=== PATIENT | female | born 1995 | race Caucasian/White ===

== ENCOUNTER 2020-04-23 23:54 | Emergency (ER) | payer OTHER ==
[2020-04-24] MEDS ORDERED: Sodium Chloride 0.9% 1000 ML 1,000 ML IV STA (00:41)
[2020-04-24 00:47] LABS: Absolute Neutrophil Ct (ANC) 3.46 (1.4-6.9); BASOPHIL % 0.7 % (0.0-0.4); Basophil (Absolute #) 0.04 (0-0.4); Eosinophil % 2.9 % (0.00-5.0); Eosinophil (Absolute #) 0.17 (0-0.5); Hematocrit 32.3 % (35-47); Hemoglobin 8.8 gm/dl (12.0-16.0); Lymphocyte (Absolute #) 1.82 (1.0-4.6); Lymphocytes % 30.8 % (24.0-44.0); Mean Cell Volume 70.1 fl (78-100); Mean Corpuscular Hemoglobin 19.1 pg (26-32); Mean Corpuscular Hgb Concent. 27.2 g/dl (32-36); Mean Platelet Volume 10.7 fl (7.5-11.0); Monocyte (Absolute #) 0.42 (0.0-1.3); Monocytes % 7.1 % (0.0-12.0); Neutrophil % 58.5 % (36.0-66.0); Platelet Count 334 K/mm3 (150-450); Red Blood Count 4.61 M/mm3 (4.1-5.4); Red Cell Distribution Width 19.8 % (11.5-14.0); White Blood Count 5.9 K/mm3 (4.0-10.5)
[2020-04-24] MEDS ORDERED: Sodium Chloride 0.9% 1000 ML 1,000 ML ONE (00:51)
[2020-04-24 00:52] LABS: ALBUMIN 4.8 g/dL (3.5-5.0); ALKALINE PHOSPHATASE 57 U/L (38-126); ANION GAP 13.2 MEQ/L (5-15); BLOOD UREA NITROGEN 11 mg/dL (7-17); CHLORIDE 101 mmol/L (98-107); Calcium 9.7 mg/dL (8.4-10.2); Carbon Dioxide 26 mmol/L (22-30); Creatinine 1 0.77 mg/dL (0.52-1.04); EST GLOMERULAR FILTRATION RATE > 60.0 ML/MIN; Glucose 100 mg/dL (74-106); Potassium 3.7 mmol/L (3.5-5.1); SGOT/AST 24 U/L (14-36); SGPT/ALT 12 U/L (0-35); SODIUM 136 mmol/L (137-145); Total Protein 7.6 g/dL (6.3-8.2)
[2020-04-24 00:53] LABS: Appearance SLIGHTLY CLOUDY (CLEAR); Bilirubin NEGATIVE (NEGATIVE); Blood SMALL Ery/ul (0-5); Epithelial Cells RARE /HPF (FEW); Glucose NEGATIVE (NEGATIVE); Ketones NEGATIVE (NEGATIVE); Leukocyte Esterase NEGATIVE (NEGATIVE); Mucus SLIGHT /HPF (NEGATIVE); Nitrite NEGATIVE (NEGATIVE); Protein,Urine Dip NEGATIVE (Negative); Specific Gravity 1.023 (1.005-1.025); Urobilinogen 2 mg/dL (0-1)
--- NOTE | 2020-04-24 00:57 | ERPHSYRPT ---
- History of Present Illness Time Seen by Provider: 04/23/20 23:58 Historian: patient Exam Limitations: no limitations Patient Subjective Stated Complaint: pt states "I have had bad stomach pain all day." Triage Nursing Assessment: pt ambulated into the er; pt is axo x4; c/o LLQ pain radiating to left flank; pt states frequent urination; pt states 7/10 pain to LLQ; tenderness with palpation to LLQ; pt denies vomiting or diarrhea; pt c/o nausea; abd is soft; hyperactive bowel sounds in all quads; clear lung sound in all lobes; clear heart tones; last BM 04/23/20; last oral in take 0015; vitals wnl Physician History: 24 years old female presented in the ER with chief complaint of left flank and left lower quadrant pain with radiation to the left groin since yesterday afternoon with gradually worsening moderate intensity sharp nature, aggravated with movements palpation and increased urination. Denies any dysuria, fever or chills. Has nausea but no vomiting. Patient also report having irregular cycles and history of endometriosis. She is currently having mild spotting. Timing/Duration: yesterday, gradual onset, worse Activities at Onset: rest Quality: sharpness Abdominal Pain Onset Location: LLQ, flank Pain Radiation: groin Severity of Pain-Max: moderate Severity of Pain-Current: moderate Modifying Factors: Worsens With: movement, palpation Associated Symptoms: nausea Previous symptoms: no prior history Allergies/Adverse Reactions: No Known Drug Allergies Allergy (Unverified 04/24/20 00:14) Home Medications: No Reportable Medications [No Reported Medications] 04/24/20 [History] Hx Tetanus, Diphtheria Vaccination/Date Given: Yes Hx Influenza Vaccination/Date Given: No Hx Pneumococcal Vaccination/Date Given: No Immunizations Up to Date: Yes Travel Risk - International Travel Have you traveled outside of the country in past 3 weeks: No - Coronavirus Screening Are you exhibiting any of the following symptoms?: No Close contact with a COVID-19 positive Pt in past 14-21 Days: No - Review of Systems Constitutional: No Symptoms Eyes: No Symptoms Ears, Nose, & Throat: No Symptoms Respiratory: No Symptoms Cardiac: No Symptoms Abdominal/Gastrointestinal: Abdominal Pain, Nausea Genitourinary Symptoms: Frequency Musculoskeletal: No Symptoms Skin: No Symptoms Neurological: No Symptoms Psychological: No Symptoms Endocrine: No Symptoms Hematologic/Lymphatic: No Symptoms Immunological/Allergic: No Symptoms - Past Medical History Pertinent Past Medical History: Yes GI Medical History: Irritable Bowel Female Reproductive Disorders: Endometriosis - Past Surgical History Past Surgical History: Yes Gastrointestinal: Cholecystectomy Musculoskeletal: Orthopedic Surgery Female Surgical History: Section, Tubal Ligation Other Surgical History: rt knee, skin graph to neck, cervical ablation x2 - Social History Smoking Status: Current every day smoker Exposure to second hand smoke: Yes Drug Use: none Patient Lives Alone: No - Female History Hx Last Menstrual Period: 04/23/20 Hx Now: (unkn) - Nursing Vital Signs Nursing Vital Signs: Initial Vital Signs Temperature 98.2 F 04/24/20 00:15 Pulse Rate 76 04/24/20 00:15 Blood Pressure 135/77 04/24/20 00:15 O2 Sat by Pulse Oximetry 99 04/24/20 00:15 Pain Scale Pain Intensity 7 - Physical Exam General Appearance: no apparent distress Eye Exam: eyes nml inspection Ears, Nose, Throat Exam: normal ENT inspection, pharynx normal Neck Exam: normal inspection, supple, full range of motion Respiratory Exam: normal breath sounds, lungs clear Cardiovascular Exam: regular rate/rhythm, normal heart sounds Gastrointestinal/Abdomen Exam: soft, normal bowel sounds, tenderness (Left flank/left lower quadrant) Back Exam: normal inspection, normal range of motion, CVA tenderness (Left) Extremity Exam: normal inspection, normal range of motion Neurologic Exam: alert, oriented x 3, cooperative Skin Exam: normal color SpO2 Interpretation: normal SpO2: 99 O2 Delivery: Room Air Ordered Tests: Active Orders 24 hr Category Date Time Status IV Insertion STAT Care 04/24/20 00:41 Active ABDOMEN AND PELVIS W CONTRAST [CT] Stat Exams 04/24/20 00:41 Taken CBC W DIFF Stat Lab 04/24/20 00:30 Completed CMP Stat Lab 04/24/20 00:30 Completed HCG,QUALITATIVE URINE Stat Lab 04/24/20 00:30 Completed UA W/RFX UR CULTURE Stat Lab 04/24/20 00:30 Completed Medication Summary Discontinued Medications Generic Name Dose Route Start Last Admin Trade Name Freq PRN Reason Stop Dose Admin Sodium Chloride 1,000 mls @ 999 mls/hr 04/24/20 00:41 04/24/20 00:52 Sodium Chloride 0.9% 1000 Ml IV 04/24/20 01:41 999 mls/hr .Q1H1M STA Administration Sodium Chloride Confirm 04/24/20 00:51 Sodium Chloride 0.9% 1000 Ml Administered 04/24/20 00:52 Dose 1,000 mls @ ud .ROUTE .STK-MED ONE Ketorolac Tromethamine 30 mg 04/24/20 02:03 04/24/20 02:14 Toradol 30 Mg Injection IV 04/24/20 02:04 30 mg STAT ONE Administration Ketorolac Tromethamine Confirm 04/24/20 02:14 Toradol 30 Mg Injection Administered 04/24/20 02:15 Dose 30 mg .ROUTE .STK-MED ONE Lab/Rad Data: Laboratory Result Diagrams 04/24/20 00:30 04/24/20 00:30 Laboratory Results 04/24/20 04/24/20 04/24/20 Range/Units 00:30 00:30 00:30 WBC 5.9 (4.0-10.5) K/mm3 RBC 4.61 (4.1-5.4) M/mm3 Hgb 8.8 L (12.0-16.0) gm/dl Hct 32.3 L (35-47) % MCV 70.1 L (78-100) fl MCH 19.1 L (26-32) pg MCHC 27.2 L (32-36) g/dl RDW 19.8 H (11.5-14.0) % Plt Count 334 (150-450) K/mm3 MPV 10.7 (7.5-11.0) fl Gran % 58.5 (36.0-66.0) % Eos # (Auto) 0.17 (0-0.5) Absolute Lymphs (auto) 1.82 (1.0-4.6) Absolute Monos (auto) 0.42 (0.0-1.3) Lymphocytes % 30.8 (24.0-44.0) % Monocytes % 7.1 (0.0-12.0) % Eosinophils % 2.9 (0.00-5.0) % Basophils % 0.7 (0.0-0.4) % Absolute Granulocytes 3.46 (1.4-6.9) Basophils # 0.04 (0-0.4) Sodium 136 L (137-145) mmol/L Potassium 3.7 (3.5-5.1) mmol/L Chloride 101 (98-107) mmol/L Carbon Dioxide 26 (22-30) mmol/L Anion Gap 13.2 (5-15) MEQ/L BUN 11 (7-17) mg/dL Creatinine 0.77 (0.52-1.04) mg/dL Estimated GFR > 60.0 ML/MIN Glucose 100 (74-106) mg/dL Calcium 9.7 (8.4-10.2) mg/dL Total Bilirubin 0.80 (0.2-1.3) mg/dL AST 24 (14-36) U/L ALT 12 (0-35) U/L Alkaline Phosphatase 57 (38-126) U/L Serum Total Protein 7.6 (6.3-8.2) g/dL Albumin 4.8 (3.5-5.0) g/dL Urine Color (YELLOW) Urine Appearance (CLEAR) Urine pH (5-6) Ur Specific Bryson (1.005-1.025) Urine Protein (Negative) Urine Ketones (NEGATIVE) Urine Blood (0-5) Landon/ul Urine Nitrite (NEGATIVE) Urine Bilirubin (NEGATIVE) Urine Urobilinogen (0-1) mg/dL Ur Leukocyte Esterase (NEGATIVE) Urine WBC (Auto) (0-5) /HPF Urine RBC (Auto) (0-2) /HPF U Epithel Cells (Auto) (FEW) /HPF Urine Bacteria (Auto) (NEGATIVE) /HPF Urine Mucus (Auto) (NEGATIVE) /HPF Urine Culture Reflexed (NO) Urine Glucose (NEGATIVE) mg/dL Urine HCG, Qual NEGATIVE (Negative) Slides for Path Review YES 04/24/20 Range/Units 00:30 WBC (4.0-10.5) K/mm3 RBC (4.1-5.4) M/mm3 Hgb (12.0-16.0) gm/dl Hct (35-47) % MCV (78-100) fl MCH (26-32) pg MCHC (32-36) g/dl RDW (11.5-14.0) % Plt Count (150-450) K/mm3 MPV (7.5-11.0) fl Gran % (36.0-66.0) % Eos # (Auto) (0-0.5) Absolute Lymphs (auto) (1.0-4.6) Absolute Monos (auto) (0.0-1.3) Lymphocytes % (24.0-44.0) % Monocytes % (0.0-12.0) % Eosinophils % (0.00-5.0) % Basophils % (0.0-0.4) % Absolute Granulocytes (1.4-6.9) Basophils # (0-0.4) Sodium (137-145) mmol/L Potassium (3.5-5.1) mmol/L Chloride (98-107) mmol/L Carbon Dioxide (22-30) mmol/L Anion Gap (5-15) MEQ/L BUN (7-17) mg/dL Creatinine (0.52-1.04) mg/dL Estimated GFR ML/MIN Glucose (74-106) mg/dL Calcium (8.4-10.2) mg/dL Total Bilirubin (0.2-1.3) mg/dL AST (14-36) U/L ALT (0-35) U/L Alkaline Phosphatase (38-126) U/L Serum Total Protein (6.3-8.2) g/dL Albumin (3.5-5.0) g/dL Urine Color YELLOW (YELLOW) Urine Appearance SLIGHTLY CLOUDY (CLEAR) Urine pH 6.0 (5-6) Ur Specific Bryson 1.023 (1.005-1.025) Urine Protein NEGATIVE (Negative) Urine Ketones NEGATIVE (NEGATIVE) Urine Blood SMALL (0-5) Landon/ul Urine Nitrite NEGATIVE (NEGATIVE) Urine Bilirubin NEGATIVE (NEGATIVE) Urine Urobilinogen 2 (0-1) mg/dL Ur Leukocyte Esterase NEGATIVE (NEGATIVE) Urine WBC (Auto) NONE (0-5) /HPF Urine RBC (Auto) NONE (0-2) /HPF U Epithel Cells (Auto) RARE (FEW) /HPF Urine Bacteria (Auto) NONE (NEGATIVE) /HPF Urine Mucus (Auto) SLIGHT (NEGATIVE) /HPF Urine Culture Reflexed NO (NO) Urine Glucose NEGATIVE (NEGATIVE) mg/dL Urine HCG, Qual (Negative) Slides for Path Review - Progress Progress: improved, pain not gone completely, re-examined Progress Note: 04/24/20 02:39 feeling better , no peritoneal signs on re evaluation , Counseled pt/family regarding: lab results, diagnosis, need for follow-up, rad results - Departure Departure Disposition: Home Clinical Impression: Left sided abdominal pain, Enteritis Condition: Stable Critical Care Time: No Referrals: ELIANA CASE [Primary Care Provider] - (1-2 days for re evaluation) Instructions: Acute Abdomen (Belly Pain), Adult (DC) Additional Instructions: Drink plenty of fluids. Take Tylenol as needed. Follow-up with primary care physician for reevaluation. Return to ER for worsening pain or if develop fever chills etc.
[2020-04-24] MEDS ORDERED: TORAdol 30 mg Injection IV ONE (02:03)
[2020-04-24] MEDS ORDERED: TORAdol 30 mg Injection ONE (02:14)
[2020-04-24 02:32] LABS: Slide Review 1 YES
[2020-04-24 02:52] VITALS: BP 87/51; PULSE 64; O2SAT 100
--- NOTE | 2020-04-24 09:24 | XRAY ---
Indication: Left pelvic pain. Dizziness and nausea. Multiple contiguous axial images obtained through the abdomen and pelvis using 80 cc Isovue 370 contrast. Comparison: None Lung bases are clear. Heart is not enlarged. Noncontrasted stomach and bowel loops appear nonobstructed. Appendix not seen. Mild fecal debris in the ascending colon. Previous cholecystectomy. No free fluid/air. Remaining liver, pancreas, spleen, adrenal glands, kidneys, ureters, bladder, uterus, and aorta appear unremarkable. No pathologic retroperitoneal lymphadenopathy. Osseous structures intact. No ventral or inguinal hernias. Impression: CT abdomen/pelvis with contrast exam is negative. Comment: Preliminary interpretation was made by C. No critical discrepancy.
== END 2020-04-24 02:52 | disposition home or self-care (01) ==
LOC: ED 23:54
DX: R10.32 Left lower quadrant pain (principal); R11.0 Nausea; R10.9 Unspecified abdominal pain
CPT/HCPCS: 36000; 36415; 74177; 80053; 81001; 84703; 85025; 96360; 96374; 99284; J1885

== ENCOUNTER 2023-02-09 17:40 | Emergency (ER) | payer OTHER ==
--- NOTE | 2023-02-09 17:55 | ERPHSYRPT ---
- History of Present Illness Source: patient, family Exam Limitations: clinical condition Timing/Duration: day(s) (3) Severity: mild (To moderate) Character of Deficits: none Deficits: no difficulties Baseline/Normal Cognition: alert oriented x 3 Current Cognition: alert oriented x 3 Baseline Gait: walks w/o assistance Associated Symptoms: fatigue, weakness, slurred speech Hx Tetanus, Diphtheria Vaccination/Date Given: Yes Hx Influenza Vaccination/Date Given: No Hx Pneumococcal Vaccination/Date Given: No <CEE WOLFE - Last Filed: 02/09/23 18:58> <MYNOR ANGEL - Last Filed: 02/09/23 21:30> - History of Present Illness Time Seen by Provider: 02/09/23 17:55 Physician History: This is a 27-year-old white female patient who 3 days ago began having multiple complaints including brain fog, body aches, fatigue, dizziness, shakiness itching head to toe with evidence of hives and migraine headache. She has not had any nausea vomiting or diarrhea symptoms. She does not have chest pain. She felt as though she had been drinking alcohol all night long whenever she woke up in the morning. However she has not drinking alcohol. She has comp lained about feeling so tired that she slept in past the time when she was post to go into work. She states that she does not do this type of thing. Patient also stated that she had a brief episode of slurred speech on Monday prior to this evaluation but it completely resolved. She has not suffered any head trauma. She is not taking any new medications. Patient has a history of endometriosis and irritable bowel syndrome. (CEE WOLFE) Allergies/Adverse Reactions: doxycycline Adverse Reaction (Verified 02/09/23 17:54) Hives Home Medications: Iron 65 mg PO BID 02/09/23 [History] Travel Risk - International Travel Have you traveled outside of the country in past 3 weeks: No - Coronavirus Screening Are you exhibiting any of the following symptoms?: Yes Symptoms: Headaches/Body Aches/Fatigue Close contact with a COVID-19 positive Pt in past 14-21 Days: No <CEE WOLFE - Last Filed: 02/09/23 18:58> - Review of Systems Constitutional: Fatigue, Weakness Eyes: No Symptoms Ears, Nose, & Throat: No Symptoms Respiratory: No Symptoms Cardiac: No Symptoms Abdominal/Gastrointestinal: No Symptoms Genitourinary Symptoms: No Symptoms Musculoskeletal: No Symptoms Skin: Pruritis Neurological: No Symptoms Psychological: No Symptoms Endocrine: No Symptoms Hematologic/Lymphatic: No Symptoms Immunological/Allergic: No Symptoms All Other Systems: Reviewed and Negative <CEE WOLFE - Last Filed: 02/09/23 18:58> - Past Medical History Pertinent Past Medical History: Yes GI Medical History: Irritable Bowel Female Reproductive Disorders: Endometriosis - Past Surgical History Past Surgical History: Yes Gastrointestinal: Cholecystectomy Musculoskeletal: Orthopedic Surgery Female Surgical History: Section, Tubal Ligation Other Surgical History: rt knee, skin graph to neck, cervical ablation x2 - Social History Smoking Status: Current every day smoker Exposure to second hand smoke: Yes Drug Use: none Patient Lives Alone: No <CEE WOLFE - Last Filed: 02/09/23 18:58> - Daniele Coma Scale Best Eye Response ([place]): (4) open spontaneously Best Verbal Response (Daniele): (5) oriented Best Motor Response ([place]): (6) obeys commands Daniele Total: 15 - Physical Exam General Appearance: no apparent distress, alert, anxiety Eye Exam: bilateral eye: normal inspection, PERRL, EOMI Ears, Nose, Throat Exam: normal ENT inspection, moist mucous membranes Neck Exam: normal inspection, non-tender, supple, full range of motion Respiratory: normal breath sounds, lungs clear, airway intact, No chest tenderness, No respiratory distress Cardiovascular: regular rate/rhythm, normal heart sounds, normal peripheral pulses Gastrointestinal: soft, normal bowel sounds, No tenderness Pelvic Exam: not done Rectal Exam: not done Back Exam: normal inspection, normal range of motion, No CVA tenderness, No vertebral tenderness Extremity Exam: normal inspection, normal range of motion, pelvis stable Mental Status: alert, oriented x 3, cooperative animal surgeon Exam: normal hearing, normal speech, PERRL, tongue midline Coordination/Gait: normal gait, normal cerebellar function Motor/Sensory: no motor deficit, no sensory deficit, no pronator drift Skin Exam: normal color, warm, dry SpO2 Interpretation: normal O2 Delivery: Room Air <CEE WOLFE - Last Filed: 02/09/23 18:58> - Nursing Vital Signs Nursing Vital Signs: Initial Vital Signs Temperature 98.8 F 02/09/23 17:51 Pulse Rate 97 H 02/09/23 17:51 Respiratory Rate 16 02/09/23 17:51 Blood Pressure 138/67 02/09/23 17:51 O2 Sat by Pulse Oximetry 99 02/09/23 17:51 Pain Scale Pain Intensity 0 - Course Nursing assessment & vital signs reviewed: Yes <CEE WOLFE - Last Filed: 02/09/23 18:58> - CT Exams Head CT Interpretation: Tele-radiologist Report (Normal CT head) <MYNOR ANGEL - Last Filed: 02/09/23 21:30> Ordered Tests: Active Orders 24 hr Category Date Time Status EKG-ER Only STAT Care 02/09/23 18:44 Active IV Insertion STAT Care 02/09/23 18:44 Active HEAD WITHOUT CONTRAST [CT] Stat Exams 02/09/23 19:55 Taken AMYLASE Stat Lab 02/09/23 19:10 Completed BLOOD CULTURE Stat Lab 02/09/23 19:20 Received CBC W DIFF Stat Lab 02/09/23 19:10 Completed CMP Stat Lab 02/09/23 19:10 Completed ETHYL ALCOHOL Stat Lab 02/09/23 19:10 Completed HCG QUALITATIVE, SERUM Stat Lab 02/09/23 19:10 Completed LIPASE Stat Lab 02/09/23 19:10 Completed Lactic Acid Stat Lab 02/09/23 19:18 Completed MAGNESIUM Stat Lab 02/09/23 19:10 Completed MONO SCREEN Stat Lab 02/09/23 19:10 Completed TSH [TSH, 3RD Generation] Stat Lab 02/09/23 18:30 Received UA W/RFX UR CULTURE Stat Lab 02/09/23 19:03 Completed Urine Triage Profile Stat Lab 02/09/23 19:03 Completed Medication Summary Discontinued Medications Generic Name Dose Route Start Last Admin Trade Name Freq PRN Reason Stop Dose Admin Sodium Chloride 1,000 mls @ 999 mls/hr 02/09/23 18:44 02/09/23 19:20 Sodium Chloride 0.9% 1000 Ml IV 02/09/23 19:44 999 mls/hr .Q1H1M STA Administration Sodium Chloride Confirm 02/09/23 19:18 Sodium Chloride 0.9% 1000 Ml Administered 02/09/23 19:19 Dose 1,000 mls @ ud .ROUTE .[facility] Lab/Rad Data: Laboratory Result Diagrams 02/09/23 19:10 02/09/23 19:10 Laboratory Results 02/09/23 02/09/23 02/09/23 Range/Units 19:18 19:15 19:10 WBC (4.0-10.5) x10^3/uL RBC (4.1-5.4) x10^6/uL Hgb (12.0-16.0) g/dL Hct (35-47) % MCV (78-100) fL MCH (26-32) pg MCHC (32-36) g/dL RDW (11.5-14.0) % Plt Count (150-450) x10^3/uL MPV (7.5-11.0) fL Gran % (36.0-66.0) % Immature Gran % (Auto) (0.00-0.4) % Nucleat RBC Rel Count (0.00-0.1) % Eos # (Auto) (0-0.5) x10^3/uL Immature Gran # (Auto) (0.00-0.03) x10^3u/L Absolute Lymphs (auto) (1.0-4.6) x10^3/uL Absolute Monos (auto) (0.0-1.3) x10^3/uL Absolute Nucleated RBC (0.00-0.01) x10^3u/L Lymphocytes % (24.0-44.0) % Monocytes % (0.0-12.0) % Eosinophils % (0.00-5.0) % Basophils % (0.0-0.4) % Absolute Granulocytes (1.4-6.9) x10^3/uL Basophils # (0-0.4) x10^3/uL Sodium (137-145) mmol/L Potassium (3.5-5.1) mmol/L Chloride (98-107) mmol/L Carbon Dioxide (22-30) mmol/L Anion Gap (5-15) MEQ/L BUN (7-17) mg/dL Creatinine (0.52-1.04) mg/dL Estimated GFR ML/MIN Glucose (74-106) mg/dL Lactic Acid 0.6 (0.4-2.0) Calcium (8.4-10.2) mg/dL Magnesium (1.6-2.3) mg/dL Total Bilirubin (0.2-1.3) mg/dL AST (14-36) U/L ALT (0-35) U/L Alkaline Phosphatase (38-126) U/L Serum Total Protein (6.3-8.2) g/dL Albumin (3.5-5.0) g/dL Amylase (30-110) U/L Lipase (23-300) U/L Serum HCG, Qual NEGATIVE (NEGATIVE) Urine Color (Yellow) Urine Appearance (Clear) Urine pH (4.6-8.0) Ur Specific [place] (1.005-1.030) Urine Protein (Negative) Urine Glucose (UA) (Negative) mg/dL Urine Ketones (Negative) Urine Blood (Negative) Urine Nitrite (Negative) Urine Bilirubin (Negative) Urine Urobilinogen (0.2) mg/dL Ur Leukocyte Esterase (Negative) U Hyaline Cast (Auto) (0-2) /LPF Urine Microscopic RBC (0-5) /HPF Urine Microscopic WBC (0-5) /HPF Ur Epithelial Cells (None Seen) /HPF Urine Bacteria (None Seen) /HPF Urine Culture Reflexed (NO) Urine Opiates Level (NEGATIVE) Ur Methadone (NEGATIVE) Urine Barbiturates (NEGATIVE) Ur Phencyclidine (PCP) (NEGATIVE) Urine Amphetamine (NEGATIVE) U Benzodiazepine Level (NEGATIVE) Urine Cocaine (NEGATIVE) Urine Marijuana (THC) (NEGATIVE) Ethyl Alcohol (0-10) mg/dL Monoscreen NEGATIVE (NEGATIVE) Influenza Type A Ag NEGATIVE (NEGATIVE) Influenza Type B Ag NEGATIVE (NEGATIVE) RSV (PCR) NEGATIVE (NEGATIVE) SARS-CoV-2 (PCR) NEGATIVE (NEGATIVE) 02/09/23 02/09/23 02/09/23 Range/Units 19:10 19:10 19:03 WBC 7.4 (4.0-10.5) x10^3/uL RBC 4.67 (4.1-5.4) x10^6/uL Hgb 13.9 (12.0-16.0) g/dL Hct 43.3 (35-47) % MCV 92.7 (78-100) fL MCH 29.8 (26-32) pg MCHC 32.1 (32-36) g/dL RDW 12.5 (11.5-14.0) % Plt Count 209 (150-450) x10^3/uL MPV 10.9 (7.5-11.0) fL Gran % 67.1 H (36.0-66.0) % Immature Gran % (Auto) 0.4 (0.00-0.4) % Nucleat RBC Rel Count 0.0 (0.00-0.1) % Eos # (Auto) 0.12 (0-0.5) x10^3/uL Immature Gran # (Auto) 0.03 (0.00-0.03) x10^3u/L Absolute Lymphs (auto) 1.88 (1.0-4.6) x10^3/uL Absolute Monos (auto) 0.37 (0.0-1.3) x10^3/uL Absolute Nucleated RBC 0.00 (0.00-0.01) x10^3u/L Lymphocytes % 25.5 (24.0-44.0) % Monocytes % 5.0 (0.0-12.0) % Eosinophils % 1.6 (0.00-5.0) % Basophils % 0.4 (0.0-0.4) % Absolute Granulocytes 4.93 (1.4-6.9) x10^3/uL Basophils # 0.03 (0-0.4) x10^3/uL Sodium 138 (137-145) mmol/L Potassium 3.6 (3.5-5.1) mmol/L Chloride 102 (98-107) mmol/L Carbon Dioxide 26 (22-30) mmol/L Anion Gap 13.6 (5-15) MEQ/L BUN 6 L (7-17) mg/dL Creatinine 0.74 (0.52-1.04) mg/dL Estimated GFR 113.7 ML/MIN Glucose 88 (74-106) mg/dL Lactic Acid (0.4-2.0) Calcium 9.4 (8.4-10.2) mg/dL Magnesium 2.0 (1.6-2.3) mg/dL Total Bilirubin 1.20 (0.2-1.3) mg/dL AST 23 (14-36) U/L ALT 18 (0-35) U/L Alkaline Phosphatase 57 (38-126) U/L Serum Total Protein 7.3 (6.3-8.2) g/dL Albumin 4.4 (3.5-5.0) g/dL Amylase 82 (30-110) U/L Lipase 145 (23-300) U/L Serum HCG, Qual (NEGATIVE) Urine Color (Yellow) Urine Appearance (Clear) Urine pH (4.6-8.0) Ur Specific [place] (1.005-1.030) Urine Protein (Negative) Urine Glucose (UA) (Negative) mg/dL Urine Ketones (Negative) Urine Blood (Negative) Urine Nitrite (Negative) Urine Bilirubin (Negative) Urine Urobilinogen (0.2) mg/dL Ur Leukocyte Esterase (Negative) U Hyaline Cast (Auto) (0-2) /LPF Urine Microscopic RBC (0-5) /HPF Urine Microscopic WBC (0-5) /HPF Ur Epithelial Cells (None Seen) /HPF Urine Bacteria (None Seen) /HPF Urine Culture Reflexed (NO) Urine Opiates Level NEGATIVE (NEGATIVE) Ur Methadone NEGATIVE (NEGATIVE) Urine Barbiturates NEGATIVE (NEGATIVE) Ur Phencyclidine (PCP) NEGATIVE (NEGATIVE) Urine Amphetamine NEGATIVE (NEGATIVE) U Benzodiazepine Level NEGATIVE (NEGATIVE) Urine Cocaine NEGATIVE (NEGATIVE) Urine Marijuana (THC) NEGATIVE (NEGATIVE) Ethyl Alcohol < 10 (0-10) mg/dL Monoscreen (NEGATIVE) Influenza Type A Ag (NEGATIVE) Influenza Type B Ag (NEGATIVE) RSV (PCR) (NEGATIVE) SARS-CoV-2 (PCR) (NEGATIVE) 02/09/23 Range/Units 19:03 WBC (4.0-10.5) x10^3/uL RBC (4.1-5.4) x10^6/uL Hgb (12.0-16.0) g/dL Hct (35-47) % MCV (78-100) fL MCH (26-32) pg MCHC (32-36) g/dL RDW (11.5-14.0) % Plt Count (150-450) x10^3/uL MPV (7.5-11.0) fL Gran % (36.0-66.0) % Immature Gran % (Auto) (0.00-0.4) % Nucleat RBC Rel Count (0.00-0.1) % Eos # (Auto) (0-0.5) x10^3/uL Immature Gran # (Auto) (0.00-0.03) x10^3u/L Absolute Lymphs (auto) (1.0-4.6) x10^3/uL Absolute Monos (auto) (0.0-1.3) x10^3/uL Absolute Nucleated RBC (0.00-0.01) x10^3u/L Lymphocytes % (24.0-44.0) % Monocytes % (0.0-12.0) % Eosinophils % (0.00-5.0) % Basophils % (0.0-0.4) % Absolute Granulocytes (1.4-6.9) x10^3/uL Basophils # (0-0.4) x10^3/uL Sodium (137-145) mmol/L Potassium (3.5-5.1) mmol/L Chloride (98-107) mmol/L Carbon Dioxide (22-30) mmol/L Anion Gap (5-15) MEQ/L BUN (7-17) mg/dL Creatinine (0.52-1.04) mg/dL Estimated GFR ML/MIN Glucose (74-106) mg/dL Lactic Acid (0.4-2.0) Calcium (8.4-10.2) mg/dL Magnesium (1.6-2.3) mg/dL Total Bilirubin (0.2-1.3) mg/dL AST (14-36) U/L ALT (0-35) U/L Alkaline Phosphatase (38-126) U/L Serum Total Protein (6.3-8.2) g/dL Albumin (3.5-5.0) g/dL Amylase (30-110) U/L Lipase (23-300) U/L Serum HCG, Qual (NEGATIVE) Urine Color Yellow (Yellow) Urine Appearance Clear (Clear) Urine pH 6.5 (4.6-8.0) Ur Specific [place] 1.010 (1.005-1.030) Urine Protein Negative (Negative) Urine Glucose (UA) Negative (Negative) mg/dL Urine Ketones Negative (Negative) Urine Blood Negative (Negative) Urine Nitrite Negative (Negative) Urine Bilirubin Negative (Negative) Urine Urobilinogen 0.2 (0.2) mg/dL Ur Leukocyte Esterase Negative (Negative) U Hyaline Cast (Auto) NONE SEEN (0-2) /LPF Urine Microscopic RBC 0-2 (0-5) /HPF Urine Microscopic WBC 0-2 (0-5) /HPF Ur Epithelial Cells Rare (None Seen) /HPF Urine Bacteria None Seen (None Seen) /HPF Urine Culture Reflexed NO (NO) Urine Opiates Level (NEGATIVE) Ur Methadone (NEGATIVE) Urine Barbiturates (NEGATIVE) Ur Phencyclidine (PCP) (NEGATIVE) Urine Amphetamine (NEGATIVE) U Benzodiazepine Level (NEGATIVE) Urine Cocaine (NEGATIVE) Urine Marijuana (THC) (NEGATIVE) Ethyl Alcohol (0-10) mg/dL Monoscreen (NEGATIVE) Influenza Type A Ag (NEGATIVE) Influenza Type B Ag (NEGATIVE) RSV (PCR) (NEGATIVE) SARS-CoV-2 (PCR) (NEGATIVE) <CEE WOLFE - Last Filed: 02/09/23 18:58> - Progress Progress: improved Counseled pt/family regarding: lab results, diagnosis, need for follow-up, rad results <MYNOR ANGEL - Last Filed: 02/09/23 21:30> - Progress Progress Note: 02/09/23 19:04 This patient's medical issue is of moderate complexity. Level complex in the workup performed is based on review of the patient's past medical history, review of the patient's medication list, review the patient's drug allergy list, history present illness and physical findings on examination. The workup in this patient includes placement of intravenous line, CT scan of the head, normal saline solution infusion, CBC, CMP, alcohol level, urinalysis, urine drug screen, test, viral swabs and monotest. I am transferring care of this patient to Dr. Angel at shift change. He will follow-up with the workup results and make final disposition. (CEE WOLFE) 27-year-old female presents to our ED with multiple complaints. Patient evaluated by previous physician. Workup was extensive however no significant findings were observed. CT head was nonremarkable. CBC CMP were within normal limits. COVID testing negative. Alcohol negative. Lipase negative. Lactic acid negative. Magnesium within normal limits. UA within normal limits. Monospot negative. Urine triage negative. Patient reassessed. She feels better. Patient ambulated throughout our ED. No complaints. Patient was concerned that her blood pressure was too low. However we checked her blood pressure manually and blood pressure was normal. We added a TSH prior to discharge. Results pending. Patient that she is ready for discharge. She will follow-up with her primary care doctor within 48 hours for evaluation. She voices no other complaints or concerns at this time. Portions of this note were created with voice recognition technology. There may be grammatical, spelling, punctuation or sound alike errors 02/09/23 21:28 (MYNOR ANGEL) - Departure Departure Disposition: Home Critical Care Time: No <CEE WOLFE - Last Filed: 02/09/23 18:58> <MYNOR ANGEL - Last Filed: 02/09/23 21:30> - Departure Clinical Impression: Dizziness Condition: Stable Referrals: ELIANA CASE [Primary Care Provider] - Follow up/PCP as directed Additional Instructions: Discharge/Care Plan NOHEMI RUEDA was seen on 02/09/23 in the Emergency Room. The patient was counseled regarding Diagnosis,Lab results, Imaging studies, need for follow up and when to return to the Emergency Room. Prescriptions given: Discharge Note I have spoken with the patient and/or caregivers. I have explained the patient's condition, diagnosis and treatment plan based on the information available to me at this time. I have answered the patient's and/or caregiver's questions and addressed any concerns. The patient and/or caregivers have as good understanding of the patient's diagnosis, condition and treatment plan as can be expected at this point. The vital signs have been stable. The patient's condition is stable and appropriate for discharge from the emergency department. The patient will pursue further outpatient evaluation with the primary care physician or other designated or consulting physician as outlined in the discharge instructions. The patient and/or caregivers are agreeable to this plan of care and follow-up instructions have been explained in detail. The patient and/or caregivers have received these instruction. The patient/and or caregivers are aware that any significant change in condition or worsening of symptoms should prompt an immediate return to this or the closest emergency department or call 911.
[2023-02-09 18:05] VITALS: TEMP 98.8
[2023-02-09] MEDS ORDERED: Sodium Chloride 0.9% 1000 ML 1,000 ML IV STA (18:44)
[2023-02-09] MEDS ORDERED: Sodium Chloride 0.9% 1000 ML 1,000 ML ONE (19:18)
[2023-02-09 19:31] LABS: Absolute Neutrophil Ct (ANC) 4.93 x10^3/uL (1.4-6.9); BASOPHIL % 0.4 % (0.0-0.4); Basophil (Absolute #) 0.03 x10^3/uL (0-0.4); Eosinophil % 1.6 % (0.00-5.0); Eosinophil (Absolute #) 0.12 x10^3/uL (0-0.5); Hematocrit 43.3 % (35-47); Hemoglobin 13.9 g/dL (12.0-16.0); IMMATURE GRAN # 0.03 x10^3u/L (0.00-0.03); IMMATURE GRAN % 0.4 % (0.00-0.4); Lymphocyte (Absolute #) 1.88 x10^3/uL (1.0-4.6); Lymphocytes % 25.5 % (24.0-44.0); Mean Cell Volume 92.7 fL (78-100); Mean Corpuscular Hemoglobin 29.8 pg (26-32); Mean Corpuscular Hgb Concent. 32.1 g/dL (32-36); Mean Platelet Volume 10.9 fL (7.5-11.0); Monocyte (Absolute #) 0.37 x10^3/uL (0.0-1.3); Neutrophil % 67.1 % (36.0-66.0); Platelet Count 209 x10^3/uL (150-450); Red Blood Count 4.67 x10^6/uL (4.1-5.4); Red Cell Distribution Width 12.5 % (11.5-14.0); White Blood Count 7.4 x10^3/uL (4.0-10.5)
[2023-02-09 19:38] LABS: Appearance Clear (Clear); Bacteria None Seen /HPF (None Seen); Bilirubin Negative (Negative); Blood Negative (Negative); Epithelial Cells Rare /HPF (None Seen); Glucose, Urine Negative (Negative); Hyaline Casts NONE SEEN /LPF (0-2); Ketones Negative (Negative); Leukocyte Esterase Negative (Negative); Nitrite Negative (Negative); Ph 6.5 (4.6-8.0); Protein,Urine Dip Negative (Negative); RBC 0-2 /HPF (0-5); Urobilinogen 0.2 mg/dL (0.2); WBC 0-2 /HPF (0-5)
[2023-02-09 19:42] LABS: ADD URINE CULTURE? NO (NO)
[2023-02-09 19:45] LABS: HCG SERUM TEST NEGATIVE (NEGATIVE)
[2023-02-09 19:48] LABS: ALBUMIN 4.4 g/dL (3.5-5.0); ALKALINE PHOSPHATASE 57 U/L (38-126); AMYLASE 82 U/L (30-110); ANION GAP 13.6 MEQ/L (5-15); BLOOD UREA NITROGEN 6 mg/dL (7-17); CHLORIDE 102 mmol/L (98-107); Calcium 9.4 mg/dL (8.4-10.2); Carbon Dioxide 26 mmol/L (22-30); Creatinine 1 0.74 mg/dL (0.52-1.04); EST GLOMERULAR FILTRATION RATE 113.7 ML/MIN; ETHYL ALCOHOL < 10 mg/dL (0-10); Glucose 88 mg/dL (74-106); LIPASE 145 U/L (23-300); Potassium 3.6 mmol/L (3.5-5.1); SGOT/AST 23 U/L (14-36); SGPT/ALT 18 U/L (0-35); SODIUM 138 mmol/L (137-145); Total Protein 7.3 g/dL (6.3-8.2)
[2023-02-09 20:00] LABS: Amphetamine,Urine NEGATIVE (NEGATIVE); Barbiturate,Urine NEGATIVE (NEGATIVE); Benzodiazepine,Urine NEGATIVE (NEGATIVE); Cocaine,Urine NEGATIVE (NEGATIVE); Methadone,Urine NEGATIVE (NEGATIVE); Opiate,Urine NEGATIVE (NEGATIVE); PCP,Urine NEGATIVE (NEGATIVE); THC,Urine NEGATIVE (NEGATIVE)
[2023-02-09 20:09] LABS: INFLUENZA A NEGATIVE (NEGATIVE); INFLUENZA B NEGATIVE (NEGATIVE); RESPIRATORY SYNCTIAL VIRUS NEGATIVE (NEGATIVE); SARS-CoV-2 Xpert Express NEGATIVE (NEGATIVE)
[2023-02-09 22:14] VITALS: BP 104/70; PULSE 55; RESP 17; O2SAT 98
--- NOTE | 2023-02-10 08:42 | XRAY ---
Indication: Dizziness. "Brain fog." Multiple contiguous axial images obtained through the head without contrast. Comparison: None Normal appearing brain parenchyma, ventricles, and bony calvarium. Visualized paranasal sinuses and mastoid air cells are clear. Impression: Normal CT head without contrast exam.
== END 2023-02-09 22:21 | disposition home or self-care (01) ==
LOC: ED 17:40
DX: R42 Dizziness and giddiness (principal); R53.83 Other fatigue; M79.10 Myalgia, unspecified site; L50.9 Urticaria, unspecified; R51.9 Headache, unspecified; Z72.0 Tobacco use
CPT/HCPCS: 0241U; 36000; 36415; 70450; 80053; 80307; 81001; 82077; 82150; 83605; 83690; 83735; 84443; 84703; 85025; 86308; 87040; 93005; 96360; 99284

== ENCOUNTER 2023-08-29 12:45 | Emergency (ER) | payer OTHER ==
[2023-08-29 13:23] VITALS: RESP 18; TEMP 97.6
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
[2023-08-29 14:06] VITALS: PULSE 54
[2023-08-29 14:16] VITALS: O2SAT 100
[2023-08-29 14:39] LABS: Appearance Clear (Clear); Bacteria None Seen /HPF (None Seen); Bilirubin Negative (Negative); Blood Negative (Negative); Epithelial Cells None Seen /HPF (None Seen); Glucose, Urine Negative (Negative); Hyaline Casts NONE SEEN /LPF (0-2); Ketones Negative (Negative); Leukocyte Esterase Negative (Negative); Nitrite Negative (Negative); Ph 7.5 (4.6-8.0); Protein,Urine Dip Negative (Negative); RBC 0-2 /HPF (0-5); Specific Gravity 1.015 (1.005-1.030); Urobilinogen 0.2 mg/dL (0.2); WBC 0-2 /HPF (0-5)
[2023-08-29 14:51] LABS: ADD URINE CULTURE? NO (NO)
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
[2023-08-29 16:21] VITALS: BP 114/65
== END 2023-08-29 16:43 | disposition home or self-care (01) ==
LOC: ED 12:45
DX: S29.012A Strain of muscle and tendon of back wall of thorax, initial encounter (principal); S39.012A Strain of muscle, fascia and tendon of lower back, initial encounter; S06.0X0A Concussion without loss of consciousness, initial encounter; S70.01XA Contusion of right hip, initial encounter; D18.09 Hemangioma of other sites; V49.40XA Driver injured in collision with unspecified motor vehicles in traffic accident, initial encounter; Z72.0 Tobacco use
CPT/HCPCS: 70450; 71250; 72131; 73502; 81001; 99285

== ENCOUNTER 2023-11-17 18:27 | Emergency (ER) | payer OTHER ==
[2023-11-17 18:43] VITALS: TEMP 98.4
--- NOTE | 2023-11-17 19:26 | ERPHSYRPT ---
- History of Present Illness Time Seen by Provider: 11/17/23 19:10 Historian: patient, family Exam Limitations: no limitations Patient Subjective Stated Complaint: Pt complains of chest pain, states she thinks she is a-fibb. States she had hx of a-fibb episode in April/May of 2023. Sees Dr Lopez, valve pipe irrigator at [facility]. Triage Nursing Assessment: Pt alert and oriented x3. Respirations easy/nonlabored. Skin w/p/d. Ambulated to ED cot without difficulty. Accompanied by fiance. S1 and S2 auscultated, normal sinus rhythm. Physician History: This is a 28-year-old white female patient who states has a history of intermittent atrial fibrillation but is not taking any medications at this time. She sees valve pipe irrigator Dr. Lopez out of [facility]. She has a history of migraine headaches, irritable bowel syndrome, endometriosis, mild mitral valve prolapse and mild mitral valve and tricuspid valve regurgitation as well as palpitations. Last evening, patient began having some substernal, central chest pain that she described as a burning with the pain going into her back, upper bilateral neck and into her bilateral upper extremities that is described as an ache. She is not short of breath. She has not had any nausea vomiting or diarrhea symptoms. She has no abdominal pain. Patient states that she has a cardiology gustavo on her phone which picked up rhythm and read it as atrial fibrillation last evening and today. Timing/Duration: yesterday Activities at Onset: none Quality: burning Location: substernal, central Chest Pain Radiation: neck (Bilateral achiness), arm (Bilateral upper extremity achiness), back (Mid scapular achiness) Severity of Pain-Max: mild Modifying Factors: Improves With: nothing Associated Symptoms: denies symptoms Nitro Today/Relief: no nitro taken today Aspirin Treatment Today: 81 mg x 4, provided by ED Allergies/Adverse Reactions: mirtazapine Allergy (Severe, Verified 11/17/23 18:29) palpitations, shortness of breath cetirizine [From Zyrtec] Allergy (Intermediate, Verified 11/17/23 18:29) Hives gabapentin Allergy (Intermediate, Verified 11/17/23 18:29) parastesia, hives doxycycline Adverse Reaction (Verified 11/17/23 18:29) Hives Home Medications: Lisdexamfetamine Dimesylate [Vyvanse] 1 tab PO DAILY 11/17/23 [History] Hx Tetanus, Diphtheria Vaccination/Date Given: No Hx Influenza Vaccination/Date Given: No Hx Pneumococcal Vaccination/Date Given: No Travel Risk - International Travel Have you traveled outside of the country in past 3 weeks: No - Emerging Infectious Disease Are you exhibiting symptoms associated with any current EIDs: No - Review of Systems Constitutional: No Symptoms Eyes: No Symptoms Ears, Nose, & Throat: No Symptoms Respiratory: No Symptoms Cardiac: Chest Pain Abdominal/Gastrointestinal: No Symptoms Genitourinary Symptoms: No Symptoms Musculoskeletal: No Symptoms Skin: No Symptoms Neurological: No Symptoms Psychological: No Symptoms Endocrine: No Symptoms Hematologic/Lymphatic: No Symptoms Immunological/Allergic: No Symptoms All Other Systems: Reviewed and Negative - Past Medical History Pertinent Past Medical History: Yes Neurological History: Migraines Cardiac History: Arrhythmia, Other Respiratory History: Other Endocrine Medical History: No Pertinent History Musculoskeletal History: No Pertinent History GI Medical History: Irritable Bowel Female Reproductive Disorders: Endometriosis Other Medical History: HISTORY OF TINGLING THROUGHOUT BODY, IS GOING TO SEE DR. WORLEY IN [place] NEXT MONTH. SOB AT TIMES, BRONCHIODIALATOR, POSSIBLE ASTHMA. MILD MITRAL VALVE PROLAPSE. MITRAL AND TRICUSPID REGURGITATION, PALPITATIONS - Past Surgical History Past Surgical History: Yes Gastrointestinal: Cholecystectomy Musculoskeletal: Orthopedic Surgery Female Surgical History: Section, Tubal Ligation Other Surgical History: rt knee, skin graph to neck, cervical ablation x2 - Female History Hx Last Menstrual Period: hysterectomy Hx Now: No - Social History Smoking Status: Light tobacco smoker Exposure to second hand smoke: Yes Drug Use: none Patient Lives Alone: No - Social Determinants of Health Will the patient participate in the screening: Declined to provide - Nursing Vital Signs Nursing Vital Signs: Initial Vital Signs Temperature 98.4 F 11/17/23 18:29 Pulse Rate 83 11/17/23 18:29 Respiratory Rate 17 11/17/23 18:29 Blood Pressure 121/83 11/17/23 18:29 O2 Sat by Pulse Oximetry 100 11/17/23 18:29 Pain Scale Pain Intensity 8 - Physical Exam General Appearance: no apparent distress, alert, anxiety, thin Eye Exam: PERRL/EOMI, eyes nml inspection Ears, Nose, Throat Exam: normal ENT inspection, moist mucous membranes Neck Exam: normal inspection, non-tender, supple, full range of motion Respiratory Exam: normal breath sounds, chest tenderness, lungs clear, airway intact, No respiratory distress Cardiovascular Exam: regular rate/rhythm, normal heart sounds, normal peripheral pulses Gastrointestinal/Abdomen Exam: soft, normal bowel sounds, No tenderness Pelvic Exam: not done Rectal Exam: not done Back Exam: normal inspection, normal range of motion, No CVA tenderness Extremity Exam: normal inspection, normal range of motion, pelvis stable Neurologic Exam: alert, oriented x 3, cooperative, motion picture film examiner II-XII nml as tested, nml cerebellar function, nml station & gait, sensation nml Skin Exam: normal color, warm, dry Lymphatic Exam: No adenopathy SpO2 Interpretation: normal SpO2: 100 O2 Delivery: Room Air - Course Nursing assessment & vital signs reviewed: Yes EKG Interpreted by Me: RATE (96), Sinus Rhythm, NORMAL AXIS, NORMAL INTERVALS, NORMAL QRS, NORMAL ST-T, Other (No acute ischemia on today's twelve-lead EKG. QTc is 422) Ordered Tests: Active Orders 24 hr Category Date Time Status Fuse Cutter STAT Care 11/17/23 19:26 Active EKG-ER Only STAT Care 11/17/23 19:26 Active IV Insertion STAT Care 11/17/23 19:26 Active Pulse Oximetry (ED) STAT Care 11/17/23 19:26 Active CBC W DIFF Stat Lab 11/17/23 19:45 Completed CMP Stat Lab 11/17/23 19:45 Completed D-DIMER QUANTITATIVE Stat Lab 11/17/23 19:45 Completed HCG QUALITATIVE, URINE Stat Lab 11/17/23 19:34 Completed MAGNESIUM Stat Lab 11/17/23 19:45 Completed NT PRO BNPII Stat Lab 11/17/23 19:45 Completed PROTIME WITH INR Stat Lab 11/17/23 19:45 Completed TROPONIN Q4H Lab 11/17/23 19:45 Completed TROPONIN Q4H Lab 11/17/23 23:30 Ordered TROPONIN Q4H Lab 11/18/23 03:30 Ordered Medication Summary Discontinued Medications Generic Name Dose Route Start Last Admin Trade Name Freq PRN Reason Stop Dose Admin Aspirin 324 mg 11/17/23 19:26 11/17/23 19:35 Aspirin 81 Mg Tab.Chew PO 11/17/23 19:27 324 mg STAT ONE Administration Aspirin Confirm 11/17/23 19:34 Aspirin 81 Mg Tab.Chew Administered 11/17/23 19:35 Dose 324 mg .ROUTE .STK-MED ONE Lab/Rad Data: Laboratory Result Diagrams 11/17/23 19:45 11/17/23 19:45 Laboratory Results 11/17/23 11/17/23 11/17/23 Range/Units 19:45 19:45 19:45 WBC (3.98-10.04) x10^3/uL RBC (3.93-5.22) x10^6/uL Hgb (11.2-15.7) g/dL Hct (34.1-44.9) % MCV (79.4-94.8) fL MCH (25.6-32.2) pg MCHC (32.2-35.5) g/dL RDW (11.7-14.4) % Plt Count (182-369) x10^3/uL MPV (9.4-12.3) fL Gran % (34.0-71.1) % Immature Gran % (Auto) (0.001-0.429) % Nucleat RBC Rel Count (0.00-0.2) % Eos # (Auto) (0.04-0.36) x10^3/uL Immature Gran # (Auto) (0.001-0.031) x10^3u/L Absolute Lymphs (auto) (1.18-3.74) x10^3/uL Absolute Monos (auto) (0.24-0.86) x10^3/uL Absolute Nucleated RBC (0.00-0.012) x10^3u/L Lymphocytes % (19.3-51.7) % Monocytes % (4.7-12.5) % Eosinophils % (0.7-5.8) % Basophils % (0.1-1.2) % Absolute Granulocytes (1.56-6.13) x10^3/uL Basophils # (0.01-0.08) x10^3/uL PT 11.7 (9.4-12.5) SECONDS INR 1.08 (0.8-3.0) D-Dimer 0.23 (0.0-0.50) mg/L Sodium 138 (135-145) mmol/L Potassium 4.2 (3.5-5.1) mmol/L Chloride 105 (98-107) mmol/L Carbon Dioxide 21 L (22-30) mmol/L Anion Gap 16.5 H (5-15) MEQ/L BUN 11 (7-17) mg/dL Creatinine 0.79 (0.52-1.04) mg/dL Estimated GFR 104.4 ML/MIN Glucose 103 (74-106) mg/dL Calcium 9.7 (8.4-10.2) mg/dL Magnesium 2.2 (1.6-2.3) mg/dL Total Bilirubin 0.90 (0.2-1.3) mg/dL AST 29 (14-36) U/L ALT 34 (0-35) U/L Alkaline Phosphatase 42 (38-126) U/L Troponin I < 0.012 (0.000-0.033) ng/mL NT-Pro-B Natriuret Pep < 20.0 (<300) pg/mL Serum Total Protein 7.4 (6.3-8.2) g/dL Albumin 4.7 (3.5-5.0) g/dL Urine HCG, Qual (NEGATIVE) 11/17/23 11/17/23 Range/Units 19:45 19:34 WBC 6.2 (3.98-10.04) x10^3/uL RBC 4.81 (3.93-5.22) x10^6/uL Hgb 14.3 (11.2-15.7) g/dL Hct 43.4 (34.1-44.9) % MCV 90.2 (79.4-94.8) fL MCH 29.7 (25.6-32.2) pg MCHC 32.9 (32.2-35.5) g/dL RDW 12.6 (11.7-14.4) % Plt Count 188 (182-369) x10^3/uL MPV 11.0 (9.4-12.3) fL Gran % 60.3 (34.0-71.1) % Immature Gran % (Auto) 0.3 (0.001-0.429) % Nucleat RBC Rel Count 0.0 (0.00-0.2) % Eos # (Auto) 0.08 (0.04-0.36) x10^3/uL Immature Gran # (Auto) 0.02 (0.001-0.031) x10^3u/L Absolute Lymphs (auto) 1.85 (1.18-3.74) x10^3/uL Absolute Monos (auto) 0.49 (0.24-0.86) x10^3/uL Absolute Nucleated RBC 0.00 (0.00-0.012) x10^3u/L Lymphocytes % 29.7 (19.3-51.7) % Monocytes % 7.9 (4.7-12.5) % Eosinophils % 1.3 (0.7-5.8) % Basophils % 0.5 (0.1-1.2) % Absolute Granulocytes 3.75 (1.56-6.13) x10^3/uL Basophils # 0.03 (0.01-0.08) x10^3/uL PT (9.4-12.5) SECONDS INR (0.8-3.0) D-Dimer (0.0-0.50) mg/L Sodium (135-145) mmol/L Potassium (3.5-5.1) mmol/L Chloride (98-107) mmol/L Carbon Dioxide (22-30) mmol/L Anion Gap (5-15) MEQ/L BUN (7-17) mg/dL Creatinine (0.52-1.04) mg/dL Estimated GFR ML/MIN Glucose (74-106) mg/dL Calcium (8.4-10.2) mg/dL Magnesium (1.6-2.3) mg/dL Total Bilirubin (0.2-1.3) mg/dL AST (14-36) U/L ALT (0-35) U/L Alkaline Phosphatase (38-126) U/L Troponin I (0.000-0.033) ng/mL NT-Pro-B Natriuret Pep (<300) pg/mL Serum Total Protein (6.3-8.2) g/dL Albumin (3.5-5.0) g/dL Urine HCG, Qual NEGATIVE (NEGATIVE) - Progress Progress: improved, re-examined Air Movement: good Progress Note: 11/17/23 19:38 My medical decision making and the assignment of moderate complexity to this patient's medical issue today is based on review of the patient's past medical history, review the patient's medication list, reviewed patient drug allergy list, history present illness and physical findings on examination. The workup in this patient includes CBC, CMP, magnesium level, PT/INR, troponin level, BNP, D-dimer, urinalysis, test. Chest x-ray will be performed if the D- dimer is negative. CT scan of the chest with contrast if the D-dimer is elevated. Differential diagnosis includes but is not limited to anxiety about health, intermittent atrial fibrillation, electrolyte abnormalities, arrhythmias, urinary tract infection, dehydration, myocardial infarction, pulmonary embolus 11/17/23 20:25 I interpreted the patient's laboratory data results. Based on the laboratory data results, the patient does not have any acute or emergent medical issue. Blood Culture(s) Obtained: No Antibiotics given: No Counseled pt/family regarding: lab results, diagnosis, need for follow-up Medical Desision Making - Independent Historian Additional History obtained from: Relative/friend - Diagnostic Testing Diagnostic test were ordered, analyzed, and reviewed by me: Yes - Risk of complications Low Risk: Low risk of morbidity from additional dx testing or treatment - Departure Departure Disposition: Home Clinical Impression: Nonspecific chest pain Condition: Stable Critical Care Time: No Referrals: MALA PINZON MD [Primary Care Provider] - Follow up/PCP as directed Additional Instructions: Call your valve pipe irrigator on 11/20/2023 as well as your primary care provider to make arrangements for follow-up appointment for further evaluation management and to be seen in approximately 3 to 5 days. Wear your Holter monitor as in structed and return it as instructed.
[2023-11-17] MEDS ORDERED: BABY ASPIRIN 81 MG CHEW ONE (19:34)
[2023-11-17] MEDS: BABY ASPIRIN 81 MG CHEW PO ONE (19:35)
[2023-11-17 19:39] LABS: HCG URINE TEST NEGATIVE (NEGATIVE)
[2023-11-17 19:46] LABS: Absolute Neutrophil Ct (ANC) 3.75 x10^3/uL (1.56-6.13); BASOPHIL % 0.5 % (0.1-1.2); Basophil (Absolute #) 0.03 x10^3/uL (0.01-0.08); Eosinophil % 1.3 % (0.7-5.8); Eosinophil (Absolute #) 0.08 x10^3/uL (0.04-0.36); Hematocrit 43.4 % (34.1-44.9); Hemoglobin 14.3 g/dL (11.2-15.7); IMMATURE GRAN # 0.02 x10^3u/L (0.001-0.031); IMMATURE GRAN % 0.3 % (0.001-0.429); Lymphocyte (Absolute #) 1.85 x10^3/uL (1.18-3.74); Lymphocytes % 29.7 % (19.3-51.7); Mean Cell Volume 90.2 fL (79.4-94.8); Mean Corpuscular Hemoglobin 29.7 pg (25.6-32.2); Mean Corpuscular Hgb Concent. 32.9 g/dL (32.2-35.5); Monocyte (Absolute #) 0.49 x10^3/uL (0.24-0.86); Monocytes % 7.9 % (4.7-12.5); Neutrophil % 60.3 % (34.0-71.1); Platelet Count 188 x10^3/uL (182-369); Red Blood Count 4.81 x10^6/uL (3.93-5.22); Red Cell Distribution Width 12.6 % (11.7-14.4); White Blood Count 6.2 x10^3/uL (3.98-10.04)
[2023-11-17 20:01] LABS: D-DIMER QUANTITATIVE 0.23 mg/L (0.0-0.50); INR 1.08 (0.8-3.0); PROTIME 11.7 SECONDS (9.4-12.5)
[2023-11-17 20:09] LABS: ALBUMIN 4.7 g/dL (3.5-5.0); ALKALINE PHOSPHATASE 42 U/L (38-126); ANION GAP 16.5 MEQ/L (5-15); BLOOD UREA NITROGEN 11 mg/dL (7-17); CHLORIDE 105 mmol/L (98-107); Calcium 9.7 mg/dL (8.4-10.2); Carbon Dioxide 21 mmol/L (22-30); Creatinine 1 0.79 mg/dL (0.52-1.04); EST GLOMERULAR FILTRATION RATE 104.4 ML/MIN; Glucose 103 mg/dL (74-106); MAGNESIUM 2.2 mg/dL (1.6-2.3); NT PRO BNPII < 20.0 pg/mL (<300); Potassium 4.2 mmol/L (3.5-5.1); SGOT/AST 29 U/L (14-36); SGPT/ALT 34 U/L (0-35); SODIUM 138 mmol/L (135-145); Total Protein 7.4 g/dL (6.3-8.2)
[2023-11-17 20:35] VITALS: BP 112/74; PULSE 66; RESP 24; O2SAT 99
== END 2023-11-17 20:45 | disposition home or self-care (01) ==
LOC: ED 18:27
DX: R07.9 Chest pain, unspecified (principal); Z79.899 Other long term (current) drug therapy; Z72.0 Tobacco use
CPT/HCPCS: 36415; 80053; 81025; 83735; 83880; 84484; 85025; 85379; 85610; 93005; 93041; 93225; 94760; 99283; A9270-GY

== ENCOUNTER 2023-11-18 19:13 | Emergency (ER) | payer OTHER ==
[2023-11-18 19:22] VITALS: TEMP 99.2
--- NOTE | 2023-11-18 19:27 | ERPHSYRPT ---
- History of Present Illness Time Seen by Provider: 11/18/23 19:27 Source: patient Exam Limitations: no limitations Physician History: The patient, with a history of AFib, central tremor syndrome, and variant migraines, presented with a recent episode of seizure, the first of its kind. The seizure, which involved the whole body, lasted approximately thirty seconds. The patient also reported experiencing chest pain and AFib episodes, as indicated by her watch, although a formal diagnosis of AFib has not been made. She is currently wearing a Holter monitor for further evaluation. In addition to these symptoms, the patient has been experiencing numbness and tingling in her hands and feet, back pain, and nausea. She is under the care of a music director, neurologist, and orthopedic doctor for these issues. The patient also reported a fall on the stairs prior to the seizure, during which she hit her head, resulting in a black eye. The patient reported feeling weak and experiencing chest tightness and a burning sensation, similar to heartburn. She also noted changes in the color of her hands and feet, turning almost black at times, and a rash that appears when she scratches her skin. The patient is currently on Vyvanse and has been recommended to take migraine medications, but has declined due to concerns about being on multiple medications. She also has a history of Raynaud syndrome, for which she is not currently taking any medication. Timing/Duration: yesterday Severity: moderate Character of Deficits: none Deficits: no difficulties Baseline/Normal Cognition: alert oriented x 3 Current Cognition: alert oriented x 3 Associated Symptoms: fatigue, weakness, muscle spasms, paresthesia, seizures, No fever, No nausea, No vomiting, No slurred speech Allergies/Adverse Reactions: mirtazapine Allergy (Severe, Verified 11/18/23 19:54) palpitations, shortness of breath cetirizine [From Zyrtec] Allergy (Intermediate, Verified 11/18/23 19:54) Hives gabapentin Allergy (Intermediate, Verified 11/18/23 19:54) parastesia, hives doxycycline Adverse Reaction (Verified 11/18/23 19:54) Hives Home Medications: Lisdexamfetamine Dimesylate [Vyvanse] 1 tab PO DAILY 11/17/23 [History] Hx Tetanus, Diphtheria Vaccination/Date Given: No Hx Influenza Vaccination/Date Given: No Hx Pneumococcal Vaccination/Date Given: No Travel Risk - Emerging Infectious Disease Are you exhibiting symptoms associated with any current EIDs: No - Review of Systems All Other Systems: Reviewed and Negative - Past Medical History Pertinent Past Medical History: Yes Neurological History: Migraines Cardiac History: Arrhythmia, Other Respiratory History: Other Endocrine Medical History: No Pertinent History Musculoskeletal History: No Pertinent History GI Medical History: Irritable Bowel Female Reproductive Disorders: Endometriosis Other Medical History: HISTORY OF TINGLING THROUGHOUT BODY, IS GOING TO SEE DR. WORLEY IN [place] NEXT MONTH. SOB AT TIMES, BRONCHIODIALATOR, POSSIBLE ASTHMA. MILD MITRAL VALVE PROLAPSE. MITRAL AND TRICUSPID REGURGITATION, PALPITATIONS - Past Surgical History Past Surgical History: Yes Gastrointestinal: Cholecystectomy Musculoskeletal: Orthopedic Surgery Female Surgical History: Section, Tubal Ligation Other Surgical History: rt knee, skin graph to neck, cervical ablation x2 - Female History Hx Last Menstrual Period: hysterectomy - Social History Smoking Status: Light tobacco smoker Exposure to second hand smoke: Yes Drug Use: none Patient Lives Alone: No - Social Determinants of Health Will the patient participate in the screening: Declined to provide - Nursing Vital Signs Nursing Vital Signs: Initial Vital Signs Temperature 99.2 F 11/18/23 19:20 Pulse Rate 77 11/18/23 19:20 Respiratory Rate 18 11/18/23 19:20 Blood Pressure 117/80 11/18/23 19:20 O2 Sat by Pulse Oximetry 100 11/18/23 19:20 Pain Scale Pain Intensity 6 - [place] Coma Scale Best Eye Response ([place]): (4) open spontaneously Best Verbal Response ([place]): (5) oriented Best Motor Response ([place]): (6) obeys commands [place] Total: 15 - Physical Exam General Appearance: no apparent distress Eye Exam: left eye: conjunctival hemorrhage, periorbital ecchymosis, bilateral eye: PERRL, EOMI Neck Exam: normal inspection, supple, full range of motion, midline tenderness Respiratory: normal breath sounds, lungs clear, airway intact, No chest tenderness, No respiratory distress Cardiovascular: regular rate/rhythm, normal heart sounds, capillary refill <2 sec Gastrointestinal: soft, No tenderness Back Exam: normal inspection, No vertebral tenderness Extremity Exam: normal inspection, No swelling, No tenderness Mental Status: alert, oriented x 3, cooperative transportation clerk Exam: normal hearing, normal speech, PERRL, tongue midline Coordination/Gait: normal finger to nose, normal cerebellar function Motor/Sensory: no motor deficit, no sensory deficit, no pronator drift Skin Exam: ecchymosis SpO2 Interpretation: normal SpO2: 100 O2 Delivery: Room Air - Course Nursing assessment & vital signs reviewed: Yes EKG Interpreted by Me: RATE (78), Sinus Rhythm, NORMAL AXIS, NORMAL INTERVALS, NORMAL QRS, NORMAL ST-T - CT Exams Head CT Interpretation: Negative, Tele-radiologist Report Maxillofacial Bones CT Interpretation: Negative, Tele-radiologist Report Cervical Spine CT Interpretation: Negative, Tele-radiologist Report Ordered Tests: Active Orders 24 hr Category Date Time Status CERVICAL SPINE WO CONTRAST [CT] Stat Exams 11/18/23 19:53 Completed FACIAL BONES WO CONTRAST [CT] Stat Exams 11/18/23 19:54 Completed HEAD WITHOUT CONTRAST [CT] Stat Exams 11/18/23 19:53 Completed CBC W DIFF Stat Lab 11/18/23 19:55 Completed CK (IN-HOUSE) [CK-Creatinine Phosphokinase] Stat Lab 11/18/23 19:55 Completed CMP Stat Lab 11/18/23 19:55 Completed Lactic Acid Stat Lab 11/18/23 19:52 Completed Urine Triage Profile Stat Lab 11/18/23 19:55 Completed Medication Summary Discontinued Medications Generic Name Dose Route Start Last Admin Trade Name Nicoq PRN Reason Stop Dose Admin Sodium Chloride 1,000 mls @ 999 mls/hr 11/18/23 19:52 11/18/23 21:34 Sodium Chloride 0.9% 1000 Ml IV 11/18/23 20:52 Infused .Q1H1M STA Infusion Sodium Chloride Confirm 11/18/23 19:56 Sodium Chloride 0.9% 1000 Ml Administered 11/18/23 19:57 Dose 1,000 mls @ ud .ROUTE .STK-MED ONE Lab/Rad Data: Laboratory Result Diagrams 11/18/23 19:55 11/18/23 19:55 Laboratory Results 11/18/23 11/18/23 11/18/23 Range/Units 19:55 19:55 19:55 WBC (3.98-10.04) x10^3/uL RBC (3.93-5.22) x10^6/uL Hgb (11.2-15.7) g/dL Hct (34.1-44.9) % MCV (79.4-94.8) fL MCH (25.6-32.2) pg MCHC (32.2-35.5) g/dL RDW (11.7-14.4) % Plt Count (182-369) x10^3/uL MPV (9.4-12.3) fL Gran % (34.0-71.1) % Immature Gran % (Auto) (0.001-0.429) % Nucleat RBC Rel Count (0.00-0.2) % Eos # (Auto) (0.04-0.36) x10^3/uL Immature Gran # (Auto) (0.001-0.031) x10^3u/L Absolute Lymphs (auto) (1.18-3.74) x10^3/uL Absolute Monos (auto) (0.24-0.86) x10^3/uL Absolute Nucleated RBC (0.00-0.012) x10^3u/L Lymphocytes % (19.3-51.7) % Monocytes % (4.7-12.5) % Eosinophils % (0.7-5.8) % Basophils % (0.1-1.2) % Absolute Granulocytes (1.56-6.13) x10^3/uL Basophils # (0.01-0.08) x10^3/uL Sodium 139 (135-145) mmol/L Potassium 3.9 (3.5-5.1) mmol/L Chloride 104 (98-107) mmol/L Carbon Dioxide 19 L (22-30) mmol/L Anion Gap 18.8 H (5-15) MEQ/L BUN 10 (7-17) mg/dL Creatinine 0.82 (0.52-1.04) mg/dL Estimated GFR 99.9 ML/MIN Glucose 101 (74-106) mg/dL Lactic Acid (0.4-2.0) Calcium 10.2 (8.4-10.2) mg/dL Total Bilirubin 1.30 (0.2-1.3) mg/dL AST 35 (14-36) U/L ALT 34 (0-35) U/L Alkaline Phosphatase 48 (38-126) U/L Creatine Kinase 201 H (30-135) U/L Serum Total Protein 7.6 (6.3-8.2) g/dL Albumin 4.9 (3.5-5.0) g/dL Urine Opiates Level NEGATIVE (NEGATIVE) Ur Methadone NEGATIVE (NEGATIVE) Urine Barbiturates NEGATIVE (NEGATIVE) Ur Phencyclidine (PCP) NEGATIVE (NEGATIVE) Urine Amphetamine POSITIVE A (NEGATIVE) U Benzodiazepine Level NEGATIVE (NEGATIVE) Urine Cocaine NEGATIVE (NEGATIVE) Urine Marijuana (THC) POSITIVE A (NEGATIVE) 11/18/23 11/18/23 Range/Units 19:55 19:52 WBC 9.3 (3.98-10.04) x10^3/uL RBC 5.13 (3.93-5.22) x10^6/uL Hgb 15.2 (11.2-15.7) g/dL Hct 46.2 H (34.1-44.9) % MCV 90.1 (79.4-94.8) fL MCH 29.6 (25.6-32.2) pg MCHC 32.9 (32.2-35.5) g/dL RDW 12.7 (11.7-14.4) % Plt Count 203 (182-369) x10^3/uL MPV 11.7 (9.4-12.3) fL Gran % 64.9 (34.0-71.1) % Immature Gran % (Auto) 0.2 (0.001-0.429) % Nucleat RBC Rel Count 0.0 (0.00-0.2) % Eos # (Auto) 0.08 (0.04-0.36) x10^3/uL Immature Gran # (Auto) 0.02 (0.001-0.031) x10^3u/L Absolute Lymphs (auto) 2.43 (1.18-3.74) x10^3/uL Absolute Monos (auto) 0.68 (0.24-0.86) x10^3/uL Absolute Nucleated RBC 0.00 (0.00-0.012) x10^3u/L Lymphocytes % 26.2 (19.3-51.7) % Monocytes % 7.3 (4.7-12.5) % Eosinophils % 0.9 (0.7-5.8) % Basophils % 0.5 (0.1-1.2) % Absolute Granulocytes 6.00 (1.56-6.13) x10^3/uL Basophils # 0.05 (0.01-0.08) x10^3/uL Sodium (135-145) mmol/L Potassium (3.5-5.1) mmol/L Chloride (98-107) mmol/L Carbon Dioxide (22-30) mmol/L Anion Gap (5-15) MEQ/L BUN (7-17) mg/dL Creatinine (0.52-1.04) mg/dL Estimated GFR ML/MIN Glucose (74-106) mg/dL Lactic Acid 1.5 (0.4-2.0) Calcium (8.4-10.2) mg/dL Total Bilirubin (0.2-1.3) mg/dL AST (14-36) U/L ALT (0-35) U/L Alkaline Phosphatase (38-126) U/L Creatine Kinase (30-135) U/L Serum Total Protein (6.3-8.2) g/dL Albumin (3.5-5.0) g/dL Urine Opiates Level (NEGATIVE) Ur Methadone (NEGATIVE) Urine Barbiturates (NEGATIVE) Ur Phencyclidine (PCP) (NEGATIVE) Urine Amphetamine (NEGATIVE) U Benzodiazepine Level (NEGATIVE) Urine Cocaine (NEGATIVE) Urine Marijuana (THC) (NEGATIVE) - Progress Progress: unchanged Progress Note: UDS shows amphetamines from Vyvanse and marijuana. Remainder of labs unremarkable. CT scan of head, facial bones and neck neg for acute findings. Recommend follow up with neurology to discuss EEG. Avoid marijuana use. Patient likely suffered concussion, precautions given. Counseled pt/family regarding: lab results, diagnosis, need for follow-up, rad results Medical Desision Making - Diagnostic Testing Diagnostic test were ordered, analyzed, and reviewed by me: Yes Radiological Interpretation: Interpreted by me, Reviewed by me, Teleradiologist Report - Risk of complications Low Risk: Low risk of morbidity from additional dx testing or treatment - Departure Departure Disposition: Home Clinical Impression: Concussion, Witnessed seizure-like activity, Traumatic ecchymosis of face, Marijuana use Condition: Good Critical Care Time: No Referrals: MALA PINZON MD [Primary Care Provider] - Follow up/PCP as directed COLEEN WORLEY [NON-STAFF PHY W/O PRIVILEGES] - Follow up with PCP 2 days Instructions: Concussion in adults, Seizures, Adult (DC)
[2023-11-18] MEDS ORDERED: Sodium Chloride 0.9% 1000 ML 1,000 ML ONE (19:56)
[2023-11-18] MEDS: Sodium Chloride 0.9% 1000 ML 1,000 ML IV STA (20:00)
[2023-11-18 20:05] LABS: BASOPHIL % 0.5 % (0.1-1.2); Basophil (Absolute #) 0.05 x10^3/uL (0.01-0.08); Eosinophil % 0.9 % (0.7-5.8); Eosinophil (Absolute #) 0.08 x10^3/uL (0.04-0.36); Hematocrit 46.2 % (34.1-44.9); Hemoglobin 15.2 g/dL (11.2-15.7); IMMATURE GRAN # 0.02 x10^3u/L (0.001-0.031); IMMATURE GRAN % 0.2 % (0.001-0.429); Lymphocyte (Absolute #) 2.43 x10^3/uL (1.18-3.74); Lymphocytes % 26.2 % (19.3-51.7); Mean Cell Volume 90.1 fL (79.4-94.8); Mean Corpuscular Hemoglobin 29.6 pg (25.6-32.2); Mean Corpuscular Hgb Concent. 32.9 g/dL (32.2-35.5); Mean Platelet Volume 11.7 fL (9.4-12.3); Monocyte (Absolute #) 0.68 x10^3/uL (0.24-0.86); Monocytes % 7.3 % (4.7-12.5); Neutrophil % 64.9 % (34.0-71.1); Platelet Count 203 x10^3/uL (182-369); Red Blood Count 5.13 x10^6/uL (3.93-5.22); Red Cell Distribution Width 12.7 % (11.7-14.4); White Blood Count 9.3 x10^3/uL (3.98-10.04)
[2023-11-18 20:20] LABS: ALBUMIN 4.9 g/dL (3.5-5.0); ANION GAP 18.8 MEQ/L (5-15); BILIRUBIN,TOTAL 1.3 mg/dL (0.2-1.3); Calcium 10.2 mg/dL (8.4-10.2); Creatinine 1 0.82 mg/dL (0.52-1.04); EST GLOMERULAR FILTRATION RATE 99.9 ML/MIN; Potassium 3.9 mmol/L (3.5-5.1); Total Protein 7.6 g/dL (6.3-8.2)
[2023-11-18 20:23] LABS: Amphetamine,Urine POSITIVE (NEGATIVE); Barbiturate,Urine NEGATIVE (NEGATIVE); Benzodiazepine,Urine NEGATIVE (NEGATIVE); Cocaine,Urine NEGATIVE (NEGATIVE); Methadone,Urine NEGATIVE (NEGATIVE); Opiate,Urine NEGATIVE (NEGATIVE); PCP,Urine NEGATIVE (NEGATIVE); THC,Urine POSITIVE (NEGATIVE)
[2023-11-18 21:10] VITALS: BP 110/60; PULSE 67; RESP 21
--- NOTE | 2023-11-18 21:22 | XRAY ---
CLINICAL HISTORY: headache COMPARISON: None. TECHNIQUE: An axial non-contrast CT scan of the brain was performed from the skull base to the high parietal region with coronal and sagittal reformats. One of the following dose-reduction techniques was utilized for this exam. Automated exposure control, adjustment of the mA and/or kV according to patient size, and use of iterative reconstruction. "CT scan performed according to ALARA principles. Automated exposure control used during the exam." CTDI:53.92mGy, DLP: 1016.25mGy*cm. FINDINGS: The brain parenchyma shows a normal appearance. Peck-white matter differentiation is maintained. No midline shifts or deformity. No intracerebral or extra axial hematoma. Normal size and configuration of the cerebral ventricles. Normal CT appearance of the posterior fossa structures namely the cerebellar hemispheres, brainstem, and cerebellar peduncles. The bony structures in the skull base are unremarkable. There are no definite calvarium fractures. The scanned paranasal sinuses are clear. IMPRESSION: There is no evidence of intracerebral hemorrhage or established infarction. Electronically Signed by: Paul Gunter MD. (11/18/2023 21:16:59 EDT)
--- NOTE | 2023-11-18 21:24 | XRAY ---
CLINICAL HISTORY: neck pain COMPARISON: None. TECHNIQUE: Contiguous axial CT of the cervical spine was performed with sagittal and coronal reconstructions without contrast. Soft tissue and bone windows are provided. One of the following dose reduction techniques was utilized for this exam: Automated exposure control, adjustment of the mA and/or kV according to patient size, and use of iterative reconstruction CT scan performed according to ALARA principles. Automated exposure control was used during the exam. CTDI:23.21mGy, DLP: 555.21mGy*cm FINDINGS: There is mild straightening of the cervical curvature likely due to muscle spasm. No definite fracture line or subluxation is seen. Maintained vertebral body height and alignment are seen. Intact intervertebral disc spaces. No evidence for facet subluxation or dislocation. Normal bone density is seen. No lytic or sclerotic bone lesion. No evidence of any central canal stenosis or cord compression. Atlantodens interval is preserved. The odontoid process and atlantoaxial joint appear normal. Normal craniovertebral junction. No paravertebral soft tissue swelling is seen. Visualized part of the lung apices show no gross abnormality. IMPRESSION: 1. No acute bony abnormality is noted. 2. Straightening of a cervical curve denoting myospasm. Electronically Signed by: Paul Gunter MD. (11/18/2023 21:18:59 EDT)
--- NOTE | 2023-11-18 21:26 | XRAY ---
CLINICAL HISTORY: left orbit pain COMPARISON: None. TECHNIQUE: An axial non-contrast CT scan of the Maxillofacial bones was performed with coronal and sagittal reformats. One of the following dose-reduction techniques was utilized for this exam. Automated exposure control, adjustment of the mA and/or kV according to patient size, and use of iterative reconstruction. CT scan performed according to ALARA principles. Automated exposure control used during the exam. CTDI:34.59mGy, DLP: 584.72mgY*CM. FINDINGS: Bones of the maxillofacial region are normal. There is no evidence of osseous fracture or aggressive appearing osseous lesion. Visualized paranasal sinus fleming are normal. No fracture is detected. The paranasal sinuses show normal aeration without fluid collection. The aerations of the bilateral mastoid air cells are normal. Bilateral orbits are normal. The nasal turbinates are normal. The intracranial structures and the cervical spine are evaluated in the brain and cervical spine CT IMPRESSION: 1. No acute osseous abnormality is identified. 2. Normal-appearing bilateral orbits, if clinically warranted MRI orbits can be obtained for further evaluation. Electronically Signed by: Paul Gunter MD. (11/18/2023 21:21:12 EDT)
[2023-11-18 21:51] VITALS: O2SAT 100
== END 2023-11-18 21:58 | disposition home or self-care (01) ==
LOC: ED 19:13
DX: S06.0X0A Concussion without loss of consciousness, initial encounter (principal); S00.12XA Contusion of left eyelid and periocular area, initial encounter; W10.9XXA Fall (on) (from) unspecified stairs and steps, initial encounter; R56.9 Unspecified convulsions; F12.90 Cannabis use, unspecified, uncomplicated; R20.2 Paresthesia of skin; R07.9 Chest pain, unspecified; R53.1 Weakness; Z79.899 Other long term (current) drug therapy; Z72.0 Tobacco use
CPT/HCPCS: 36415; 70450; 70486; 72125; 80053; 80307; 82550; 83605; 84146; 85025; 96360; 99284